=== PATIENT | male | born 1940 | race Caucasian/White ===

== ENCOUNTER 2020-09-20 12:30 | Inpatient (IN) | payer OTHER ==
[~2020-09-20] VITALS: Ht 165.1 cm; Wt 73.5 kg
[~2020-09-20 12:30] MED LIST: ATORVASTATIN CA40 MG PO; CARDIZEM60 MG; CLONAZEPAM0.5 MG PO; ESOMEPRAZOLE ST40 MG PO; HYZAAR 50-12.1 UDTAB; LEVAQUIN750 MG PO; METFORMIN HCL500 M1 PO; NEXIUM40 MG/PACK PO; TAMS0.4C PO; ULTRACET PO; [UNRECOGNIZED DRUG - OTHER] PO
[2020-09-26] MEDS ORDERED: TRAZODONE HCL150 MG (08:02)
[2020-09-26] MEDS ORDERED: ARIPIPRAZOLE5 MG (08:02)
[2020-09-26] MEDS ORDERED: FINASTERIDE5 MG (08:02)
[2020-09-26] MEDS ORDERED: ALLOPURINOL300 MG (08:03)
[2020-09-26] MEDS ORDERED: JANUVIA100 MG (08:03)
[2020-09-26] MEDS ORDERED: LOSARTAN POTASS50 MG (08:03)
== END 2020-09-27 13:05 | disposition home or self-care (01) | DRG 714 ==
LOC: SURH 12:30 → O/R 09-26 05:50 → SURH 09-26 07:00
PROVIDERS: ADMIT Urology; ATTEND Urology
PROC: 0VB08ZZ Excision of Prostate, Via Natural or Artificial Opening Endoscopic (ICD-10-PCS; principal; 2020-09-26 07:00)
DX: N40.1 Benign prostatic hyperplasia with lower urinary tract symptoms (principal); R33.8 Other retention of urine

== ENCOUNTER 2021-09-05 15:22 | Emergency (ER) | payer OTHER ==
[~2021-09-05] VITALS: Ht 165.1 cm; Wt 68.0 kg
[~2021-09-05 15:22] MED LIST changes: +ALLOPURINOL300 MG; +ARIPIPRAZOLE5 MG; +FINASTERIDE5 MG; +JANUVIA100 MG; +LOSARTAN POTASS50 MG; +TRAZODONE HCL150 MG
[2021-09-05] MEDS ORDERED: AMOXICILLIN (15:59)
== END 2021-09-05 22:45 | disposition home or self-care (01) ==
LOC: ER 15:22
DX: N45.1 Epididymitis (principal); N43.3 Hydrocele, unspecified; N39.0 Urinary tract infection, site not specified; B96.89 Other specified bacterial agents as the cause of diseases classified elsewhere; E11.9 Type 2 diabetes mellitus without complications; Z79.84 Long term (current) use of oral hypoglycemic drugs; I10 Essential (primary) hypertension